=== PATIENT | male | born 1940 | race Caucasian/White ===

== ENCOUNTER 2022-08-27 20:59 | Inpatient (IN) | payer MEDICARE ==
[~2022-08-27] VITALS: Ht 177.8 cm; Wt 77.5 kg
--- NOTE | 2022-08-27 23:00 | NUR ---
ARRIVAL TO ICU PT ARRIVED FROM [facility] VIA EMS. PT IS ALERT AND ORIENTED, SOMEWHAT SLOW TO RESPOND BUT ANSWERS APPROPRIATELY. COOPERATIVE WITH CARE. DOPAMINE INFUSING AT 20MCG/KG/MIN. HR 30S. BP STABLE. PT DENIES CP OR SOB. DR BRADFORD AT BEDSIDE FOR EVAL.
--- NOTE | 2022-08-27 23:30 | NUR ---
UPDATE DR BRADFORD AT BEDSIDE. MULTIPLE DOSES OF ATROPINE GIVEN PER EMAR. HR REMAINS 30S-50S. TITRATING DOPAMINE FOR GOAL OF HR >55.
[2022-08-27 23:40] LABS: Source, Urine Clean Catch
[2022-08-27 23:43] LABS: Bilirubin, Urine Neg (Neg); Blood, Urine 1+ (Neg); Glucose Qualitative, Urine Neg (Neg); Ketones, Urine Neg (Neg); Leukocyte Esterase, Urine 1+ (Neg); Nitrite, Urine Neg (Neg); Protein, Urine 2+ (Neg); Specific Gravity, Urine 1.015 (1.003-1.022); Urobilinogen, Urine NORM (Normal)
[2022-08-27 23:49] LABS: BASOPHILS ABSOLUTE AUTO 0.02 K/mm3 (0.00-0.23); BASOPHILS PERCENT AUTO 0 % (0-2); EOSINOPHILS PERCENT AUTO 0 % (0-6); Hematocrit 30.9 % (37.0-53.0); Hemoglobin 10.4 g/dL (13.5-17.5); IMMATURE GRAN ABSOLUTE AUTO 0.04 K/mm3 (0.00-0.10); IMMATURE GRAN PERCENT AUTO 1 % (0-1); LYMPHOCYTES ABSOLUTE AUTO 1.43 K/mm3 (0.84-5.20); LYMPHOCYTES PERCENT AUTO 18 % (21-46); MONOCYTES ABSOLUTE AUTO 0.83 K/mm3 (0.16-1.47); MONOCYTES PERCENT AUTO 10 % (4-13); Mean Corpuscular HGB 31.3 pg (26.0-34.0); Mean Corpuscular HGB Conc 33.7 g/dL (31.5-36.5); Mean Corpuscular Volume 93 fL (80-100); Mean Platelet Volume 10.3 fL (9.1-12.4); NEUTROPHILS ABSOLUTE AUTO 5.77 K/mm3 (1.96-9.15); NEUTROPHILS PERCENT AUTO 71 % (41-73); Platelet Count 163 K/mm3 (150-400); RDW Coefficient Variation 13.6 % (11.7-14.2); Red Blood Cell Count 3.32 M/mm3 (4.30-5.90); White Blood Cell Count 8.09 K/mm3 (4.00-11.30)
[2022-08-28 00:11] LABS: Magnesium, Blood 1.7 mg/dL (1.6-2.4)
[2022-08-28 00:15] LABS: Albumin, Blood 3.1 g/dL (3.4-5.0); Bilirubin, Total 0.9 mg/dL (0.1-1.0); Bun/Creatinine Ratio 78.8 (12.0-20.0); Calcium, Blood 7.7 mg/dL (8.5-10.1); Creatinine, Blood 0.5 mg/dL (0.60-1.20); Globulin, Blood 3.1 g/dL (2.2-4.0); Phosphorus, Blood 2.9 mg/dL (2.5-4.9); Potassium, Blood 4.5 mmol/L (3.5-5.5); Thyroid Stimulating Hormone 0.591 uIU/mL (0.360-4.800); Total Protein, Blood 6.2 g/dL (6.4-8.2)
[2022-08-28] MEDS ORDERED: ELIQUIS5 M2 PO (00:30)
[2022-08-28] MEDS ORDERED: Flomax0.4 MG PO (00:31)
[2022-08-28] MEDS ORDERED: ZOCOR20 MG PO (00:31)
[2022-08-28] MEDS ORDERED: LOSA50 PO (00:32)
[2022-08-28] MEDS ORDERED: METF500 PO (00:33)
[2022-08-28] MEDS ORDERED: METO25ER PO (00:34)
[2022-08-28 00:37] LABS: Color, Urine Yellow (P-Yellow)
[2022-08-28 00:38] LABS: Appearance, Urine Clear (Clear); Bacteria Rare /hpf; Red Blood Cells, Urine 0-2 /hpf (0-2); Squamous Epithelial Cells Rare /hpf (Few); White Blood Cells, Urine 0-2 /hpf (0-5)
[2022-08-28 00:39] LABS: Hyaline Casts 0-2 /lpf (0-2)
--- NOTE | 2022-08-28 03:00 | NUR ---
UPDATE DOPAMINE INFUSING AT 20MCG/KG/MIN. HR REMAINS 30S-50S. PT MORE SOMNOLENT AND CONFUSED. OCCASIONAL VISUAL HALLUCINATIONS. DAUGHTER REMAINS AT BEDSIDE AND REPORTS BEHAVIOR IS ABNORMAL FOR PT. RESIDENT NOTIFIED. NO ADDITIONAL ORDERS AT THIS TIME.
[2022-08-28 06:17] LABS: BASOPHILS ABSOLUTE AUTO 0.01 K/mm3 (0.00-0.23); BASOPHILS PERCENT AUTO 0 % (0-2); EOSINOPHILS PERCENT AUTO 0 % (0-6); Hematocrit 33.9 % (37.0-53.0); Hemoglobin 11.1 g/dL (13.5-17.5); IMMATURE GRAN ABSOLUTE AUTO 0.03 K/mm3 (0.00-0.10); IMMATURE GRAN PERCENT AUTO 0 % (0-1); LYMPHOCYTES PERCENT AUTO 9 % (21-46); MONOCYTES ABSOLUTE AUTO 0.73 K/mm3 (0.16-1.47); MONOCYTES PERCENT AUTO 7 % (4-13); Mean Corpuscular HGB 30.8 pg (26.0-34.0); Mean Corpuscular HGB Conc 32.7 g/dL (31.5-36.5); Mean Corpuscular Volume 94 fL (80-100); Mean Platelet Volume 10.5 fL (9.1-12.4); NEUTROPHILS ABSOLUTE AUTO 8.14 K/mm3 (1.96-9.15); NEUTROPHILS PERCENT AUTO 83 % (41-73); Platelet Count 178 K/mm3 (150-400); RDW Coefficient Variation 13.7 % (11.7-14.2); RDW Standard Deviation 47.3 fL (35.1-46.3); White Blood Cell Count 9.81 K/mm3 (4.00-11.30)
[2022-08-28 06:41] LABS: Albumin, Blood 3.3 g/dL (3.4-5.0); Bilirubin, Total 0.5 mg/dL (0.1-1.0); Bun/Creatinine Ratio 24.5 (12.0-20.0); Calcium, Blood 7.8 mg/dL (8.5-10.1); Creatinine, Blood 1.43 mg/dL (0.60-1.20); Globulin, Blood 3.2 g/dL (2.2-4.0); Potassium, Blood 4.5 mmol/L (3.5-5.5); Total Protein, Blood 6.5 g/dL (6.4-8.2)
--- NOTE | 2022-08-28 06:44 | NUR ---
End of Shift Nursing Report Mr. Blackwell arrived last night for bradycardia in the 30's and on dobutamin 10mcg. He is Alert and oriented to self and place, he is confused on situation and had episodes of hallucination. EKG showed Sinus Bradycardia, He received, NS Bolus x1 followed by two doses of atropin 0.5mg and 2 doses of atropin 1mg without much success. He is maxed out on Dopamine at 20mcg, Dr Myles is aware. patient HR fractuating in the 50's. He had urge to void this AM without success, bladder scan showed 729 ml, and straight cath produced 500ml.
--- NOTE | 2022-08-28 10:10 | NUR ---
BARRIE CONTINUES IN A JUNCTIONAL BRADYCARDIC RHYTHM. HIS BLOOD PRESSURE IS STABILIZING AND HE IS LESS NAUSEATED. HE CONTINUES TO HAVE DIFFICULTY TRYING TO VOID. HE WILL HAVE BURSTS OF RATES IN THE LOW 100'S THAT LAST ONLY A FEW SECONDS. HIS DAUGHTER REMAINS AT THE BEDSIDE. HE IS INTERMITTENTLY FORGETFUL, REMAINING PLEASANT AND COOPERATIVE.
--- NOTE | 2022-08-28 10:39 | NUR ---
HERE TO SEE PT. ORDERS RECEIVED. PLAN TO DO TEMPORARY PACER TODAY WITH PERMANENT PACER TOMORROW. ECHO AND LAB WORK TO BE DONE.
[2022-08-28 11:37] LABS: Creatine Kinase MB 1.8 ng/mL (0.0-3.6); Creatine Kinase MB Index 2.8 (0.0-4.0)
--- NOTE | 2022-08-28 11:55 | NUR ---
LINEN CHANGE DONE THEN PATIENT TAKEN TO FINANCIAL REPORTING ADVISOR WITH MARGA NOONAN AND MARGA ZAYAS. AND DAUGHTER AT BEDSIDE, UNDERSTAND WHAT IS HAPPENING AND WHY.
[2022-08-28 13:19] LABS: Source, Urine Foley catheter
--- NOTE | 2022-08-28 13:20 | NUR ---
PT RETURNS FROM PROCEDURE, RIGHT GROIN SITE ASSESSED. PACER SETTINGS NOTED. WAS DISCUSSED WITH PATIENT THE INABILITY TO SET HIM UP HIGHER THAN 20'. PT EXPRESSED INABILITY TO URINATE WITHOUT SITTING UP. DISCUSSED PLACEMENT OF CATHETER UNTIL AFTER PROCEDURE TOMORROW. AGREED WITH CATHETER PLACEMENT. KEEPING GROIN SITE CLEAN AND PT COMFORTABLE. SHEET PLACED ACROSS HIS RIGHT LEG TO REMIND HIM NOT TO BEND THAT LEG. PT VERBALIZES UNDERSTANDING AND AGREES. PT RESTING. DOPAMINE OFF.
[2022-08-28 13:45] LABS: Appearance, Urine Clear (Clear); Bilirubin, Urine Neg (Neg); Blood, Urine 2+ (Neg); Color, Urine Yellow (P-Yellow); Glucose Qualitative, Urine Neg (Neg); Ketones, Urine Neg (Neg); Leukocyte Esterase, Urine Neg (Neg); Nitrite, Urine Neg (Neg); Protein, Urine 1+ (Neg); Specific Gravity, Urine 1.015 (1.003-1.022); Urobilinogen, Urine NORM (Normal)
--- NOTE | 2022-08-28 14:03 | NUR ---
ECHO BEING PERFORMED NOW. PT TOLERATING WELL, SLIGHT ROTATION TO THE LEFT WHILE KEEPING THE RIGHT GROIN STRAIGHT.
[2022-08-28 14:49] LABS: Hyaline Casts 0-2 /lpf (0-2)
[2022-08-28 14:50] LABS: Bacteria Few /hpf; Red Blood Cells, Urine 0-2 /hpf (0-2); Squamous Epithelial Cells Not Seen /hpf (Few); White Blood Cells, Urine 0-2 /hpf (0-5)
--- NOTE | 2022-08-28 18:29 | NUR ---
BARRIE WAS NOTED TO BE IN COMPLETE HEART BLOCK AND WAS TAKEN TO ROTARY OPERATOR FOR PLACEMENT OF A TRANSCUTANEOUS PACER VIA RIGHT GROIN SITE. SITE REMAINS CLEAN DRY AND INTACT WITH THE BOX HANGING VIA IV POLE AT BEDSIDE. RATE, AMPLITUDE, CAPTURE REMAINS UNCHANGED. HE HAS REMAINED PACED FOR THE MAJORITY OF THE TIME WITH OCC RATES IN THE HI 60S. HIS MENTATION HAS IMPROVED, NO NAUSEA AND VERY COOPERATIVE. FAMILY HAS GONE TO THE MOTEL FOR THE EVENING. PLAN TO MAKE HIM NPO AFTER MIDNIGHT, START MAINTENANCE FLUIDS AND HAVE THE PERMANENT PACEMAKER TOMORROW. NO FURTHER UPDATES.
--- NOTE | 2022-08-29 06:30 | NUR ---
PATIENT AOX4 AND FOLLOWS COMMANDS. TRANSVENOUS PACEMAKER IN R GROIN, PT REMAINS V-PACED AT 60 BPM. BP STABLE. 2L NC. PT NPO SINCE MIDNIGHT FOR PERMANENT PACEMAKER PLACEMENT IN AM. COOPER IN PLACE AND PATENT.
[2022-08-29 07:02] LABS: BASOPHILS ABSOLUTE AUTO 0.03 K/mm3 (0.00-0.23); BASOPHILS PERCENT AUTO 1 % (0-2); EOSINOPHILS ABSOLUTE AUTO 0.05 K/mm3 (0.00-0.68); EOSINOPHILS PERCENT AUTO 1 % (0-6); Hematocrit 29.8 % (37.0-53.0); Hemoglobin 9.9 g/dL (13.5-17.5); IMMATURE GRAN ABSOLUTE AUTO 0.03 K/mm3 (0.00-0.10); IMMATURE GRAN PERCENT AUTO 1 % (0-1); LYMPHOCYTES ABSOLUTE AUTO 1.34 K/mm3 (0.84-5.20); LYMPHOCYTES PERCENT AUTO 23 % (21-46); MONOCYTES ABSOLUTE AUTO 0.63 K/mm3 (0.16-1.47); MONOCYTES PERCENT AUTO 11 % (4-13); Mean Corpuscular HGB 31.4 pg (26.0-34.0); Mean Corpuscular HGB Conc 33.2 g/dL (31.5-36.5); Mean Corpuscular Volume 95 fL (80-100); Mean Platelet Volume 9.8 fL (9.1-12.4); NEUTROPHILS ABSOLUTE AUTO 3.84 K/mm3 (1.96-9.15); NEUTROPHILS PERCENT AUTO 65 % (41-73); Platelet Count 145 K/mm3 (150-400); RDW Coefficient Variation 14.1 % (11.7-14.2); RDW Standard Deviation 48.5 fL (35.1-46.3); Red Blood Cell Count 3.15 M/mm3 (4.30-5.90); White Blood Cell Count 5.92 K/mm3 (4.00-11.30)
[2022-08-29 07:27] LABS: Bun/Creatinine Ratio 20.8 (12.0-20.0); Calcium, Blood 8.2 mg/dL (8.5-10.1); Creatinine, Blood 1.3 mg/dL (0.60-1.20); Potassium, Blood 4.5 mmol/L (3.5-5.5)
--- NOTE | 2022-08-29 12:01 | NUR ---
BARRIE REMAINS ON THE TRANSVENOUS PACER, RATE 50, OUTPUT 5, SENSE 0.4. WHEN DR. DOUGLAS WAS SEEING THE PATIENT, THE RATE WAS TURNED DOWN BY INCREMENTS OF 10 PER INSTRUCTIONS OF . PT'S HEART WAS 100% PACED ALL THE WAY DOWN TO RATE OF 30. HE DID NOT COMPLAIN OF ANYTHING AT THE TIME, WAS TOLD THAT IT WOULD BE COMING DOWN BY OUR CONTROL. TOLERATED WELL. PT UNDERSTANDS THAT HE IS REQUIRING A DEVICE PLACEMENT THAT ISN'T ROUTINELY DONE HERE AND THAT IS LOOKING FOR A TRANSFER TO [facility]. QUESTIONS ANSWERED WHEN THEY COME UP.
--- NOTE | 2022-08-29 12:42 | NUR ---
PHONE CALL FROM MATTHEW IN PATIENT REGISTRATION REPRESENTATIVE, THERE IS AN ACCEPTING STREET LIGHT SERVICER SUPERVISOR AT [facility]. ASKED TO CALL THE HOSPITALIST AND HAVE THEM GET THE TRANSFER IN PROCESS. PT AND FAMILY MADE AWARE THAT PT HAS BEEN ACCEPTED. BARRIE CONTINUES WITH THE RIGHT GROIN SITE STABLE AND LEG STRAIGHT.
--- NOTE | 2022-08-29 14:28 | NUR ---
PT HAS BEEN GIVEN A BED ASSIGNMENT, PATIENT AND MADE AWARE. PERSONAL BELONGINGS GATHERED. ORGANIZING GROUND TRANSPORT. CONTINUE TO KEEP PATIENT AND FAMILY UPDATED.
--- NOTE | 2022-08-29 14:57 | NUR ---
NOTED THAT BARRIE'S HEART RATE WAS 40'S-50'S, CALL TO WHO ASKED THAT THE Ma BE INCREASED. NOW SET AT 6 FOR OUTPUT, SENSE REMAINS AT 0.4 AND RATE CONTINUES AT 60. PT DENIED FEELING ANYTHING DIFFERENTLY.
--- NOTE | 2022-08-29 15:07 | NUR ---
SPOKE WITH MARGA JOHNSON AT [facility]. REPORT GIVEN, QUESTIONS ANSWERED. AWAIT AMBULANCE FOR TRANSPORTATION. FAMILY AWARE.
--- NOTE | 2022-08-29 15:28 | NUR ---
BARRIE WAS LOADED ONTO THE GURNEY AND TRANSITIONED TO THEIR MONITORS, PACER EXPLAINED TO THE ACTIVE DIRECTORY SPECIALIST, QUESTIONS ANSWERED. RATE REMAINS AT 60, OUTPUT AT 6, SENSE @ 0.4. ACTIVE DIRECTORY SPECIALIST STATED HE WOULD CALL IF HE WAS CONCERNED FOR ANY REASON R/T THE PACER. FAMILY FOLLOWED BEHIND PATIENT. CALL TO MARGA JOHNS[facility] TO LET HER KNOW THAT THE AMBULANCE HAD JUST LEFT THE FACILITY.
== END 2022-08-29 15:49 | disposition short-term general hospital (02) | DRG 261 ==
LOC: ICUE 20:59 → ICUW 22:55
PROVIDERS: Family Medicine; Internal Medicine Cardiovascular Disease; Student in an Organized Health Care Education/Training Program; ADMIT Internal Medicine
PROC: 5A1223Z Performance of Cardiac Pacing, Continuous (ICD-10-PCS; principal; 2022-08-28)
PROC: 02HK3JZ Insertion of Pacemaker Lead into Right Ventricle, Percutaneous Approach (ICD-10-PCS; 2022-08-28)
DX: I44.2 Atrioventricular block, complete (principal); N17.9 Acute kidney failure, unspecified; R00.1 Bradycardia, unspecified; K21.9 Gastro-esophageal reflux disease without esophagitis; N40.0 Benign prostatic hyperplasia without lower urinary tract symptoms; I10 Essential (primary) hypertension; E78.5 Hyperlipidemia, unspecified; E11.9 Type 2 diabetes mellitus without complications; I48.0 Paroxysmal atrial fibrillation; I25.10 Atherosclerotic heart disease of native coronary artery without angina pectoris; R19.7 Diarrhea, unspecified; E86.0 Dehydration; I48.20 Chronic atrial fibrillation, unspecified; T44.7X5A Adverse effect of beta-adrenoreceptor antagonists, initial encounter; Z95.1 Presence of aortocoronary bypass graft; Z79.01 Long term (current) use of anticoagulants; Z79.84 Long term (current) use of oral hypoglycemic drugs; Z79.899 Other long term (current) drug therapy
CPT/HCPCS: 33210; 36415; 51701; 51702; 76937; 80048; 80053; 81001; 82550; 82553; 82947; 83735; 84100; 84443; 84484; 85025; 87086; 93005; 93010; 93306; A9270; C1769; C1894; J0461; J1265; J1644; J7030; J7040